=== PATIENT | male | born 1980 | race Caucasian/White ===

== ENCOUNTER 2022-12-21 01:02 | Emergency (ER) | payer OTHER ==
[2022-12-21] MEDS ORDERED: IPRATROPIUM/ALBUTEROL SULFATE 3 ML SOLUTION IH ONE ×2 (03:00)
[2022-12-21] MEDS ORDERED: ALBU90AE2 IH (03:45)
[2022-12-21 04:26] VITALS: BP 128/76
== END 2022-12-21 04:36 | disposition home or self-care (01) ==
LOC: EDH 01:02
DX: J44.9 Chronic obstructive pulmonary disease, unspecified (principal); F17.200 Nicotine dependence, unspecified, uncomplicated; F10.10 Alcohol abuse, uncomplicated; K74.60 Unspecified cirrhosis of liver; K43.9 Ventral hernia without obstruction or gangrene
CPT/HCPCS: 94640